=== PATIENT | female | born 1995 | race Caucasian/White ===

== ENCOUNTER 2019-03-18 13:06 | Emergency (ER) | payer BC, OTHER ==
[~2019-03-18] VITALS: Ht 160 cm; Wt 62.8 kg
[2019-03-18 13:23] VITALS: BP 114/63
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
== END 2019-03-18 14:45 | disposition home or self-care (01) ==
LOC: ED 14:30
DX: S06.0X0A Concussion without loss of consciousness, initial encounter (principal); S00.93XA Contusion of unspecified part of head, initial encounter; X58.XXXA Exposure to other specified factors, initial encounter; Y93.89 Activity, other specified; Y92.89 Other specified places as the place of occurrence of the external cause; Y99.8 Other external cause status
CPT/HCPCS: 99282

== ENCOUNTER 2019-04-16 21:44 | Emergency (ER) | payer BC, OTHER ==
[~2019-04-16] VITALS: Ht 160 cm; Wt 63.2 kg
[2019-04-16 22:11] VITALS: BP 118/70
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
[2019-04-16] MEDS ORDERED: DIPHENHYDRAMINE 25 MG CAPSULE PO ONE (23:30)
[2019-04-16] MEDS ORDERED: BUTALB/APAP/CAFFEINE 50MG/325MG/40MG PO ONE (23:30)
[2019-04-16] MEDS ORDERED: ONDANSETRON ODT 4 MG PO ONE (23:30)
[2019-04-16] MEDS ORDERED: DIPHENHYDRAMINE 25 MG CAPSULE ONE (23:31)
[2019-04-16] MEDS ORDERED: ONDANSETRON ODT 4 MG ONE (23:31)
== END 2019-04-17 00:44 | disposition home or self-care (01) ==
LOC: ED 04-17 00:01
DX: G44.309 Post-traumatic headache, unspecified, not intractable (principal); S06.0X9A Concussion with loss of consciousness of unspecified duration, initial encounter; F17.200 Nicotine dependence, unspecified, uncomplicated; Z72.89 Other problems related to lifestyle; X58.XXXA Exposure to other specified factors, initial encounter; Y93.41 Activity, dancing; Y92.89 Other specified places as the place of occurrence of the external cause; Y99.8 Other external cause status
CPT/HCPCS: 70450; 99284; Q0162; Q0163